=== PATIENT | male | born 1950 | race Caucasian/White ===

== ENCOUNTER → 2020-06-03 | Outpatient (CLI) | payer OTHER ==
[~2020-06-03] MED LIST: CATHETER FLUSH 10 ML SYR IV PRN; HOLD METFORMIN - RECEIVED CONTRAST 20 ML VIAL IV SCH; IOHEXOL 350 MG/ML 100 ML (OMNIPAQUE 350) VIAL IV ONE; NS 100 ML (IVPB) BAG IV ONE
--- NOTE | 2020-06-03 17:45 | Diagnostic Imaging Report ---
PROCEDURE: CT angiography of the head and CT angiography of the neck with and without contrast. TECHNIQUE: Contiguous noncontrast images were obtained from the skull base through the vertex. After intravenous contrast administration, helical CT angiography of the neck was performed. Source data was reformatted into 3D MIP projections. Delayed post contrast acquisition was also obtained. Auto Exposure Controls were utilized during the CT exam to meet ALARA standards for radiation dose reduction. INDICATION: Vertigo, neck pain. COMPARISON: None FINDINGS: There is atherosclerotic calcification at the origin of the right vertebral artery. 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 There is some reflux from the basilar artery retrograde into the distal aspect of the right vertebral artery. The left vertebral artery is dominant and grossly unremarkable. The basilar artery is intact. Laqh-mb-uldazoma atherosclerosis is seen in the carotid bulbs bilaterally. There is approximately 50% stenosis involving the origin of the right ICA. There is 60% stenosis in the origin of the left ICA. Ultrasound correlation recommended. Otherwise, the bilateral common carotid and internal carotid arteries are widely patent. The [place] is intact. There is no aneurysm or AVM. No abnormal enhancement is seen. Venous structures are patent. Minimal degenerative changes are seen throughout the cervical spine. There is no osseous lesion or fracture. Centrilobular emphysema is seen in the upper lung zones. IMPRESSION: 1. 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 2. No aneurysm or AVM. 3. No large intracranial vascular occlusion. 4. Bilateral proximal internal carotid artery stenosis. Ultrasound correlation recommended. 5. Centrilobular emphysema. 6. Not mentioned above, no focus of acute intracranial ischemia or hemorrhage. Dictated by: Dictated on workstation # [id number]
== END ==
LOC: RAD 16:45
PROVIDERS: ATTEND Family Medicine
DX: I65.23 Occlusion and stenosis of bilateral carotid arteries (principal); I66.9 Occlusion and stenosis of unspecified cerebral artery; I65.1 Occlusion and stenosis of basilar artery; I65.01 Occlusion and stenosis of right vertebral artery; J43.2 Centrilobular emphysema
CPT/HCPCS: 70496; 70498